=== PATIENT | male | born 1985 | race Caucasian/White ===

== ENCOUNTER 2018-05-11 05:49 | Day surgery (SDC) | payer OTHER ==
[~2018-05-11] VITALS: Ht 167.6 cm; Wt 86.1 kg
[2018-05-11] MEDS ORDERED: INSULIN (06:44)
[2018-05-11 06:45] VITALS: Ht 167.6 cm; Wt 86.1 kg
[2018-05-11 07:34] VITALS: BP 111/69; PULSE 84; RESP 18
[2018-05-11] MEDS ORDERED: MIDAZOLAM 1 MG/ML 2 ML INJ ONE ×2 (08:12)
[2018-05-11] MEDS ORDERED: FENTAnyl 50 MCG/ML VIAL ONE (08:12)
[2018-05-11 08:32] VITALS: BP 116/71; PULSE 80; RESP 18
== END 2018-05-11 16:43 | disposition home or self-care (01) ==
LOC: GIL 05:49
PROVIDERS: ATTEND Internal Medicine Gastroenterology
DX: K21.9 Gastro-esophageal reflux disease without esophagitis (principal); K29.60 Other gastritis without bleeding
CPT/HCPCS: 88305; 88312; J2250; J3010